=== PATIENT | male | born 1965 | race Caucasian/White ===

== ENCOUNTER 2020-03-29 13:51 | Outpatient (CLI) | payer BC, SELFPAY ==
--- NOTE | 2020-03-29 13:59 | MM_ITS ---
WS: [id number] DIAGNOSTIC BILATERAL DIGITAL MAMMOGRAM WITH CAD Bilateral breast ultrasound, limited HISTORY: MASS OF BOTH BREASTS, male patient. COMPARISON: None available. TECHNIQUE: Bilateral craniocaudad, mediolateral oblique, and mediolateral views are submitted. Spot c ompression bilateral MLO. Computer aided detection utilized. Breast composition: The breasts are almost entirely fatty. Triangular markers are placed over the ant erior aspect of each breast near 6:00. No underlying soft tissue abnormality or distortion is identif ied. Bilateral breast ultrasound. Hypoechoic ill-defined asymmetries posterior to each nipple. The largest on the RIGHT measures 9 x 8 x 8 mm. No increased vascularity. Consistent with very minimal changes of gynecomastia. No discrete p arenchymal nodule or mass. MM/[id number] IMPRESSION: BI-RADS: 2-Benign FOLLOW UP: See Report Findings of very mild gynecomastia bilaterally but greatest on the RIGHT.
== END 2020-03-29 13:52 | disposition home or self-care (01) ==
LOC: RADSHAW 13:56
PROVIDERS: Family Provider Family Medicine; PCP Family Medicine; Visit Provider Family Medicine
DX: N63.10 Unspecified lump in the right breast, unspecified quadrant (principal); N63.20 Unspecified lump in the left breast, unspecified quadrant; N62 Hypertrophy of breast
CPT/HCPCS: 76642; 77066

== ENCOUNTER 2020-12-26 10:53 | Outpatient (CLI) | payer SELFPAY ==
[2020-12-26 11:08] LABS: HF Add Manual Diff No
[2020-12-26 11:12] LABS: Basophils % 0.4 %; Eosinophils # 0.2 10^3/uL (0.0-0.8); Eosinophils % 3.4 %; Hematocrit 40.8 % (42.0-52.0); Hemoglobin 13.7 g/dL (11.7-16.6); Lymphocytes # 1.9 10^3/uL (0.8-4.8); Lymphocytes % 27.5 %; Mean Corpuscular HGB Conc 33.6 g/dL (30.0-36.0); Mean Corpuscular Hemoglobin 28.5 pg (28.0-34.0); Mean Corpuscular Volume 84.8 fl (80-94); Mean Platelet Volume 8.5 fL (7.4-10.4); Monocytes # 0.7 10^3/uL (0.2-0.9); Monocytes % 10.9 %; Neutrophils # 3.88 10^3/uL (1.8-7.7); Neutrophils % 57.5 %; Nucleated Red Blood Cells % 0 %; Platelet Count 282 10^3/cmm (130-400); Red Blood Count 4.81 10^6/uL (4.1-5.3); Red Cell Distribution Width 12.8 % (12.1-15.1); White Blood Count 6.8 10^3/uL (4.0-10.0)
[2020-12-26 11:41] LABS: Estmated Average Glucose 108; Hemoglobin A1C 5.4 % (4.0-6.0)
[2020-12-26 12:19] LABS: Prostate Specific Antigen Scr 0.47 ng/mL (0-4)
[2020-12-26 12:40] LABS: Alanine Aminotransferase 32 U/L (0-41); Albumin Level 4.2 g/dL (3.5-5.2); Alkaline Phosphatase 92 IU/L (40-130); Anion Gap 14.8 (5-19); Aspartate Amino Transferase 23 U/L (0-40); Blood Urea Nitrogen 11 mg/dL (6-20); Calcium 8.9 mg/dL (8.5-10.5); Carbon Dioxide 22 mmol/L (22-29); Chloride 103 mmol/L (98-107); Chol HDL Ratio 2.67 mg/dL (1.0-5.00); Cholesterol 152 mg/dL (0-200); Globulin 2.7 g/dL (1.3-4.6); Glomerular Filtration Rate 88.3 mL/min (90-130); Glucose 86 mg/dL (65-115); HDL Cholesterol 57 mg/dL (60-100); LDL Cholesterol Calculated 57 mg/dL (50-129); Osmolality Calculated 281 mOsm/kg (285-295); Potassium 3.8 mmol/L (3.5-5.1); Sodium 136 mmol/L (136-145); Total Bilirubin 0.3 mg/dL (0.15-1.2); Total Protein 6.9 g/dL (6.6-8.7); Triglycerides 189 mg/dL (0-150)
[2020-12-28 11:25] LABS: Thyroid Stimulating Hormone 2.41 uIU/mL (0.27-4.20)
== END 2020-12-26 10:54 | disposition home or self-care (01) ==
PROVIDERS: PCP Family Medicine; Visit Provider Family Medicine
DX: Z01.89 Encounter for other specified special examinations (principal)

== ENCOUNTER → 2021-02-14 16:31 | Outpatient (BNVA) | payer OTHER, SELFPAY | PROVIDERS: PCP Family Medicine; Visit Provider Internal Medicine | DX: Z20.822 Contact with and (suspected) exposure to COVID-19 (principal); Z01.812 Encounter for preprocedural laboratory examination | CPT/HCPCS: 87635 ==

== ENCOUNTER 2021-02-19 07:09 | Day surgery (SDC) | payer OTHER, SELFPAY ==
[2021-02-14 13:13] VITALS: BMI 33.2
--- NOTE | 2021-02-19 07:25 | ANES.PREANE2 ---
Pre-Anesthetic Assessment Pre-Anesthetic Assessment: Height/Weight: Height 1.83 m Weight 111.13 kg Proposed Procedure: Operation Date: 02/19/21 08:30 Proposed Procedures p Colonoscopy 04173 Z12.11(Not Applicable) - Chaim Hewitt MD Was Beta Ly taken within 24 hours: N/A Was Clonidine taken within 24 hours: N/A Social: Social History: No alcohol and No tobacco Exam: Pre-Anes Outpt Exam: alert, oriented x 3, clear to auscultation bilaterally and regular rate & rhythm Airway: Submandibular: WNL Cervical ROM: WNL MP: 2 Pulmonary: Pulmonary: Asthma Metabolic: Metabolic: Morbid obesity Anesthetic Plan: ASA status: 2 Anesthesia: MAC Risk of > 500 ml blood loss (7ml/kg in children): No PFSH Anesthesia PFSH: Family History (Updated 01/30/21 @ 14:[address]) Grandfather Diabetes Grandmother Cancer Mother Cancer Social History (Updated 01/30/21 @ 14:[address]) Smoking and tobacco status: never smoked service: No History of recent travel: No Data Anesthesia Cardiac Studies: No Data to Display
[2021-02-19 07:39] VITALS: BP 134/95; PULSE 83; RESP 16; TEMP 36.6; O2SAT 96
--- NOTE | 2021-02-19 07:52 | W.PM.OPSFHP ---
Same Day Surgery H&P Indication for Procedure/HPI DATE OF PROCEDURE: February 19, 2021 CHIEF COMPLAINT/INDICATIONFOR SURGICAL PROCEDURE: Screen for colon cancer PREOP DIAGNOSIS: screening PLANNED PROCEDRUE: Operation Date: 02/19/21 08:30 Proposed Procedures p Colonoscopy 60099 Z12.11(Not Applicable) - Chaim Hewitt MD Medications/Allergies* Home Medications Medication Instructions Recorded Confirmed Type aspirin 325 mg tablet 325 mg PO DAILY 01/08/21 02/19/21 History bimatoprost 0.01 % eye drops 1 drp OPHTHALMIC (EYE) DAILY 01/08/21 02/19/21 History montelukast 10 mg tablet 10 mg PO DAILY 01/08/21 02/19/21 History ibuprofen 200 mg tablet 400 mg PO .prn PRN tab 01/30/21 02/19/21 History Allergies/Adverse Reactions Allergy/AdvReac Type Severity Reaction Status Date / Time No Known Allergies Allergy Verified 02/14/21 13:17 Pertinent History/Comorbid Conditions* Family History (Updated 01/30/21 @ 14:55 by GRACIELA Connell) Diabetes Grandfather Cancer Grandmother Mother Social History Smoking and tobacco status: never smoked service: No History of recent travel: No Pertinent Exam Findings alert, oriented x 3, clear to auscultation bilaterally, regular rate & rhythm, operative site marked and procedure specific exam findings Recommendations Surgery/Procedure today Coding Level of Care Code Acute Shipping Point Inspector for Mitchell Mccall
[2021-02-19] MEDS: sodium chloride 0.9% 1,000 ML 30 ML IV (07:53)
[2021-02-19 09:16] VITALS: BP 134/93; PULSE 76; RESP 16; TEMP 36.1; O2SAT 96
[2021-02-19 09:25] VITALS: BP 133/90; PULSE 69; RESP 16; O2SAT 98
--- NOTE | 2021-02-19 10:53 | ANE.PACU2 ---
Inpatient post-anesthesia follow up: Airway intact: Yes Vital signs: Temperature 97.0 F Pulse Rate 69 Respiratory Rate 16 Blood Pressure 133/90 Pulse Oximetry 98 Oxygen Delivery Me thod Room Air Oxygen Flow Rate Fraction of Inspir ed Oxygen Hydration adequate: Yes Mental status: Baseline
== END 2021-02-19 09:48 | disposition home or self-care (01) ==
PROVIDERS: PCP Family Medicine; Visit Provider Internal Medicine
PROC: 0DJD8ZZ Inspection of Lower Intestinal Tract, Via Natural or Artificial Opening Endoscopic (ICD-10-PCS; CPT 45378; principal; 2021-02-19 08:30)
DX: Z12.11 Encounter for screening for malignant neoplasm of colon (principal); K64.8 Other hemorrhoids; Z79.82 Long term (current) use of aspirin
CPT/HCPCS: 45378; 96360; 96361; J2704; J7030

== ENCOUNTER 2023-01-11 16:29 | Emergency (ER) | payer OTHER, SELFPAY ==
[2023-01-11 16:38] VITALS: BP 133/85; PULSE 102; RESP 18; TEMP 36.6; O2SAT 96; BMI 32.9
[2023-01-11 16:40] VITALS: BP 133/89; PULSE 96; RESP 18; O2SAT 99
--- NOTE | 2023-01-11 16:43 | XRR_ITS ---
PROCEDURE INFORMATION: Exam: XR Left Wrist Exam date and time: 01/11/2023 4:50 PM Age: 57 years old Clinical indication: Injury or trauma; Fall; Blunt trauma (contusions or hematomas); Wrist; Left; Additional info: Fall pain TECHNIQUE: Imaging protocol: Radiologic exam of the left wrist. Views: 3 or more views. COMPARISON: No relevant prior studies available. FINDINGS: Bones/joints: There is a comminuted impacted fracture of the distal radius extending to the articular surface with moderate dorsal angulation of the radiocarpal joint angle on the lateral view. Remaining osseous structures and joint surfaces are intact. Soft tissues: Unremarkable. XR/XR wrist LT min 3V* [id number] IMPRESSION: Acute comminuted impacted fracture of the distal radius.
--- NOTE | 2023-01-11 17:05 | W.ED.EXTPRO ---
HPI - Extremity Problem General: Chief complaint: Extremity Injury, Upper Stated complaint: left arm pain Time Seen by Provider: 01/11/23 17:03 History of Present Illness: 57-year-old male patient was working in the yard when he tripped and fell catching himself outstretched arm. Patient has swelling and some dinner fork deformity to the left wrist. Cap refill and sensation is intact. Patient appears nontoxic. Patient has medical history of high blood pressure, asthma, and glaucoma. Review of Systems General: Reports: 10 or more systems reviewed and unremarkable except in HPI and below Musc: Reports: extremity pain and extremity swelling [facility] ED PFSH: Medical History (Updated 01/11/23 @ 17:48 by JOHNSON Rowe) Fatigue Generalized anxiety disorder History of Lyme disease last tick bite 12/25/2022 Hypertension Internal hemorrhoids colonoscopy 02/19/2021 Dr. Hewitt Obesity Peripheral neuropathy Family History (Updated 01/30/21 @ 14:[address]) Grandfather Diabetes Grandmother Cancer Mother Cancer Social History (Updated 01/30/21 @ 14:56 by Aline Spence, CT) Smoking and tobacco status: never smoked service: No Physical Exam Const: COMMON NORMALS: alert Neck/C-Spine: COMMON NORMALS: full ROM Resp: COMMON NORMALS: normal respiratory effort and clear to auscultation bilaterally AUSCULTATION: clear to auscultation bilaterally Cardio: COMMON NORMALS: regular rate and regular rhythm RATE: regular rate RHYTHM: regular rhythm Extremity: LEFT UPPER EXTREMITY: Yes wrist (Dorsal swelling, decreased range of motion of wrist) Left wrist: Yes inspection, Yes palpation, Yes ROM and Yes neurovascular exam Neuro: SENSORIUM/ORIENTATION: Yes alert Skin: COMMON NORMALS: turgor normal GENERAL SKIN EXAM: turgor normal Procedures Nerve Block Nerve Block 1: Local Anesthetic: lidocaine 2% Amount of anesthesia used (mL): 6 Side: left Nerve Blocks: hematoma block Orthopedic Splinting/Casting Injury #1: Side: left Upper Extremity Injury Location: wrist Upper Extremity Immobilizer: volar splint (Short arm Ortho-Glass) Course Vital Signs: Vital signs: Vital Signs Temperature 97.8 F 01/11/23 16:38 Pulse Rate 92 01/11/23 17:52 Respiratory Rate 18 01/11/23 17:52 Blood Pressure 131/98 01/11/23 17:52 Pulse Oximetry 96 01/11/23 17:52 Oxygen Delivery Me thod Room Air 01/11/23 17:10 MDM - Extremity (Nontraumatic) Medical Decision Making 57-year-old male patient comes in today for complaints of injury to the left wrist. On exam patient has normal movement of the lower digits with prompt cap refill. Patient does have sensation to touch. Swelling is noted to the dorsal aspect of the left wrist. Patient reports that he tripped and fell at home while doing yard work catching at the outstretched arm. Differential diagnosis includes fracture, dislocation, sprain. X-ray noted a comminuted fracture of the distal radius. Reviewed exam with Dr. Mann who recommended volar splint and follow-up. Hematoma block was given for comfort splint was then applied with gentle traction to the fracture with application of splint. Patient reported relief of discomfort after splint application cap refill remained intact sensation remained intact. Patient was put in the volar splint and arm sling with recommendations for follow-up with appointment. Lab Data Radiology Impressions Wrist X-Ray 01/11/23 16:43 IMPRESSION: Acute comminuted impacted fracture of the distal radius. All radiology interpretation(s) finalized by discharge Discharge Plan Discharge Patient Disposition: Home Clinical Impression: Fracture of wrist Qualifiers: Encounter type: initial encounter Fracture type: closed Laterality: left Qualified Code(s): S62.102A - Fracture of unspecified carpal bone, left wrist, initial encounter for closed fracture Condition: Stable Prescriptions: New hydrocodone-acetaminophen 5-325 mg tablet 1 tab PO Q6H PRN (Reason: pain (scale score 7-10)) Qty: 12 0RF No Action montelukast 10 mg tablet 10 mg PO DAILY Lumigan 0.01 % drops 1 drp ophthalmic (eye) DAILY lisinopril 5 mg tablet 5 mg PO DAILY Qty: 30 1RF doxycycline hyclate 100 mg tablet 100 mg PO BID 10 Days Qty: 20 0RF Discharge Orders: Discharge ED (Routine); Ordered 01/11/23 Ordered By: Denis Kaplan Referrals: Nadir Georges MD [Primary Care Provider] - Govind Mann DO [Physician] - Discharge Diet: Usual diet Discharge Activity: Limit activity as instructed Patient Instructions: Wrist Fracture in Adults (ED), Splint Care (ED), Opioid Safety Activity Restrictions/Additional Instructions: Follow-up with orthopedics office for definitive repair. Use ice for pain and swelling. Use acetaminophen or ibuprofen to help control pain. Use hydrocodone for severe pain. Call orthopedics office Friday to assure appointment time. Case management while also contact you regarding appointment. Coding Level of Care Code ED Delinquency Prevention Officer for Mitchell Mccall
[2023-01-11 17:10] VITALS: BP 133/89; PULSE 91; RESP 20; O2SAT 96
[2023-01-11] MEDS: HYDROcodone-acetaminophen 7.5-325 mg Tablet 1 TAB PO (17:19)
[2023-01-11 17:52] VITALS: BP 131/98; PULSE 92; RESP 18; O2SAT 96
--- NOTE | 2023-01-11 17:54 | PC.NURSE ---
All prescriptions sent with patient. Patient verbalized understanding. Follow up appoints made.
--- NOTE | 2023-01-13 10:27 | PC.SOCIAL ---
Ortho Referral Referral to clinic at this time. Clinic to contact patient with appt date/time.
== END 2023-01-11 17:45 | disposition home or self-care (01) ==
PROVIDERS: Emergency Provider Nurse Practitioner Family; PCP Family Medicine
DX: S52.502A Unspecified fracture of the lower end of left radius, initial encounter for closed fracture (principal); I10 Essential (primary) hypertension; W01.0XXA Fall on same level from slipping, tripping and stumbling without subsequent striking against object, initial encounter
CPT/HCPCS: 29125; 73110; 99283

== ENCOUNTER → 2023-01-14 16:10 | Outpatient (BNVA) | payer OTHER, SELFPAY | PROVIDERS: PCP Family Medicine; Referring Provider Nurse Practitioner Family; Visit Provider Student in an Organized Health Care Education/Training Program | DX: S52.502A Unspecified fracture of the lower end of left radius, initial encounter for closed fracture; W01.0XXA Fall on same level from slipping, tripping and stumbling without subsequent striking against object, initial encounter | CPT/HCPCS: 73110 ==

== ENCOUNTER 2023-01-20 06:01 | Day surgery (SDC) | payer OTHER, SELFPAY ==
[2023-01-20] VITALS (9 sets, daily range): BP systolic 100–127; BP diastolic 61–90; PULSE 79–98; RESP 12–20; TEMP 36.1–36.9; O2SAT 93–99; BMI 32.9
--- NOTE | 2023-01-20 | XR_ITS ---
WS: [id number] Left wrist, C-arm fluoroscopy views, 01/20/2023 Clinical Data: ORIF left wrist, or pic Comparison: Left wrist, 01/14/2023 Findings: Dr. Mann performed an internal fixation of the distal left radius. Impression: Internal fixation of distal left radial fracture.
--- NOTE | 2023-01-20 06:26 | W.PM.OPSUD ---
Surgery/Procedure H&P Update DATE OF PROCEDURE: January 20, 2023 DATE H&P PERFORMED: 01/14/23 H&P UPDATE INFORMATION: I have reviewed H&P completed within last 30 days, I have examined patient prior to procedure and No changes to prior documentation PREOP DIAGNOSIS: Left displaced distal radius fx PRIMARY INDICATION FOR PROCEDURE: displaced left distal radius fx PLANNED PROCEDURE: Operation Date: 01/20/23 07:00 Proposed Procedures p ORIF Wrist ORIF Distal Radius(Left)(Left) - Govind Mann DO
[2023-01-20] MEDS: ketorolac 30 mg/mL INJ IVP (06:28)
[2023-01-20] MEDS: sodium chloride 0.9% 1,000 ML 30 ML IV (06:29)
[2023-01-20] MEDS: acetaminophen 1,000 MG/100 ML PIGGYBACK 400 MG IV (06:30)
[2023-01-20] MEDS: scopolamine 1.5 Patch 1 PATCH TRANSDERMA (06:32)
--- NOTE | 2023-01-20 07:01 | SUR.PREOP ---
Timeout was performed at bedside in preop for block to left axillary. Patient tolerated block well.
--- NOTE | 2023-01-20 07:05 | ANES.PROC ---
Anesthesia Procedures Procedure/Date: 01/20/23 Nerve Block ^: Nerve Block 1: Main Anesthesia: general anesthesia Time Out Performed: Yes Consent: requested by attending/covering physician, from patient, from other, risks and benefits reviewed and patient agrees to proceed Nerve block location: axillary (L (plus L musculocutaneous)) Anesthesia monitors applied: pulse oximetry, EKG, BP cuff and oxygen Nerve block position: supine Anesthetic Used: ropivicaine 0.5% (30 ml) and with decadron (4 mg) Ultrasound used to: recognize landmarks Nerve Stimulator Used?: No Interscalene/Femoral BLK: 2 stimuplex 22 g needle used for position and inplane approach, visualize local anesthetic spread and no vascular puncture identified Injection: neg aspiration of heme Patient Tolerated Procedure: well and no complications Complications: none
[2023-01-20] MEDS: ceFAZolin 2,000 MG in sodium chloride 0.9% (plus) 50 ML 100 MG IV (07:11)
--- NOTE | 2023-01-20 08:27 | P.BOP_ITS ---
Date of Procedure: [01/20/2023] Surgeon: [Govind Mann DO] Audiology Director(s): [Martin Mann PA-C] Procedure(s) performed: [Left Distal Radius Open Reduction Internal Fixation 3part Intraarticular] Findings of the procedure(s): [Left distal radius fx, ORIF went as planned] Estimated blood loss: [5mL] Specimen(s) removed: [None] Post-operative diagnosis: [Left Distal Radius 3part intraarticular fx]
--- NOTE | 2023-01-20 08:31 | P.OP_ITS ---
Operative Report Date of procedure: January 20, 2023 Surgeon: Govind Mann DO Associate Product Manager: Martin Mann PA-C PA was necessary for assistance in this case with arm positioning as well as to assist in holding reduction and retraction as well as protection of neurovascular structures during execution of ORIF distal radius Procedure: Preop Diagnosis ? Left distal radius fracture ? Procedure: Post-op diagnosis: Same, 3 part intra-articular Procedure done: Left distal radius open reduction internal fixation, 3-part intra-articular Implants: ?Arthrex left 3-hole standard volar locking plate single use sterile implant Kit Surgeon: Govind Mann DO Anesthesia: General and nerve Block (Regional) Estimated blood loss: 5 mL Tourniquet time: 35 minutes IV fluids: See anesthesia record Complications: None Findings: See operative report narrative Condition: stable Disposition: same day Brief History: Patient is a 57-year-old male who presented to my office for a [id number]-[id number] left distal radius fracture.? Patient has significant comminution and shortening as well as dorsal angulation patient active and at this point time through shared decision making patient like to proceed with a left distal radius ORIF.? We had a detailed discussion in the office about nonoperative and operative intervention.? At this point time I feel through shared decision? best option would be open reduction internal fixation pt young, active and already has a considerable deformity as result through shared decision making patient would like to proceed with ORIF left distal radius fracture.? Detail the risk benefits complication alternatives to treatment option.? Understanding risk for surgery patient elects to proceed with surgical intervention.? All questions been answered at this time. Procedure: Patient seen and evaluated in the preoperative holding area.? Consent reviewed and signed with patient.? Correct extremities were marked and consent was reviewed and signed.? Patient was seen and evaluated by anesthesia department.? Underwent regional anesthesia. Once cleared for surgery pt was taken back to the operative suite.? Patient was then transported into the operative suite and kept on the OR gurney, all bony prominences well-padded patient was appropriate secur ed to bed in supine position.? An armboard was applied to the left upper extremity.? The left upper extremity had a nonsterile tourniquet applied.? Patient subsequently was then prepped and draped in standard orthopedic fashion she underwent anesthesia per the anesthesia department.? A final timeout was performed.? Patient received appropriate preoperative antibiotics. Esmarch was used exsanguinate the left upper extremity and tourniquet was insufflated to 250 mmHg. A standard modified FCR volar approach was performed to the left distal radius.? Sharp scalpel incision through skin and subcutaneous tissue.? I then switched to Littler dissection scissors identify the FCR tendon releases out of the sheath both proximally and distally mobilized the tendon ulnarly and then subsequently incised the floor of the FCR tendon sheath with care to just incise the floor.? I then bluntly sweep the FPL tendon muscle belly ulnarly and placed blunt self- retaining retractor.? At this point time I direct visualization of the pronator quadratus which was incised in standard L fashion off the radial and distal border in the distal radius and fracture site was scraped clean of interposed muscle belly.? I then identified the 3 part intra-articular distal radius fracture.? This was subsequently opened above and freed of interposing muscle belly as well as periosteum and fracture hematoma.? I did have to utilize my [place] which was placed through the fracture pattern and disengage the fracture and performed manual manipulation and anatomic reduction of the distal radius fracture.? ?Once satisfied with reduction and had appropriate anatomic reduction of the volar cortex.? This was confirmed with mini C arm in multiple orthogonal imaging.? At this point time? I selected a Arthrex anatomic distal radius plate utilizing a standard 3-hole plate sterile implant kit which was subsequently opened and would have appropriate spread distally.? This was then placed up to the distal radius while maintaining my reduction, pins were placed distally and proximally to confirm appropriate placement of the plate along the distal radius.? Minor adjustments were made and once I was satisfied I then subse quently drilled a bicortical 3.5 screw proximally in the oblong hole to allow for appropriate sliding of the distal radius plate appropriately to perfect position on the distal radius.? This had excellent fixation and purchase and brought the plate to bone.? While maintaining my reduction I then confirmed in multiple orthogonal imaging that my plate was in appropriate position.? Once satisfied with my position, I then subsequently drilled and placed a fully threaded cortical screw to compress the plate to bone for the distal fracture fragment.? This was performed with plan to then remove this and placed a locking screw had bicortical fixation with excellent purchase and appropriate reduction of my volar tilt and bringing plate to bone of the distal fragment and plate.? Once I was satisfied with my plate position as well as reduction of the distal radius which was confirmed on AP oblique and lateral imaging I then subsequently drilled measured and placed 4 locking screws around this cortical screw.? Then I subsequently removed the cortical screw and placed a shorter locking screw that did not penetrate the dorsal cortex.?? This completed my distal fixation.? I did utilize mini C arm to confirm appropriate placement of the screws these were all within the distal radius and no joint involvement within the radiocarpal joint or the DRUJ.? These had appropriate subchondral support and maintenance of reduction and fixation of the distal radius fracture.? ?I then turned my attention proximally and then I screwed in the locking guides for my final to screws proximally these were then subsequently drilled measured and appropriate length locking screws were then placed proximally with excellent fixation and locking technology into the plate.? This completed my construct.?Final imaging of the left distal radius open reduction internal fixation was taken of AP lateral as well and is orthogonal imaging.? I then took a inclination view which showed my radial styloid screw was out of the penetration of the joint.? All my distal screws were appropriate length did not penetrate dorsal cortex and did not penetrate the joint.? This completed my fixation.? Smooth wrist range of motion was then noted with no evidence of clicking. Wrist was then taken through pronation supination and stressed the DRUJ which was found to be stable.? The wound was then thoroughly irrigated.? Tourniquet was then subsequently deflated.? Hemostasis satisfactory with bipolar electrocautery.? I then subsequently placed interrupted 3-0 Vicryl sutures for subcutaneous tissue and then subsequently placed a nylon the skin for closure.? Incision was then dressed with Xeroform 4 x 4's Kerlix cast padding and a volar Ortho-Glass splint was then applied with Kang wrap and placed in a sling.? Disposition: Patient taken to PACU in stable condition recovering well receive appropriate discharge instructions as well as pain medication postoperatively.? Maintain splint until follow-up.? Nonweightbearing to operative upper extremity. Pt will follow-up with Dr. Mann in the office in 2 weeks.? If any questions or concerns feel free to contact the office.
--- NOTE | 2023-01-20 08:40 | PM.PACU ---
PACU note Narrative: Patient is a 57-year-old male that just underwent a left distal radius ORIF. Patient transferred to PACU in stable condition. Patient is somnolent and still under the effect of anesthesia. Dressing and splint on left hand is dry and in place. Patient's fingers are warm and well-perfused. Unable to assess sensation and motor due to block. Exam: unarousable Disposition: discharged
--- NOTE | 2023-01-20 10:06 | SUR.PHASEII ---
Patient is calling a taxi for ride home. Nurse offered to call but he insists he will call himself. Patient is aware he is not allowed to drive self today after anesthesia.
--- NOTE | 2023-01-20 10:10 | ANE.PACU2 ---
Inpatient post-anesthesia follow up: Airway intact: Yes Vital signs: Temperature 97.4 F Pulse Rate 87 Respiratory Rate 17 Blood Pressure 109/66 Pulse Oximetry 95 Oxygen Delivery Me thod Room Air Oxygen Flow Rate 6 Fraction of Inspir ed Oxygen Hydration adequate: Yes Nausea and vomiting: No Pain level: 1 Mental status: Baseline
--- NOTE | 2023-01-20 10:12 | SUR.PREOP ---
Patient wanted a coffee from [employer], didn't want to ride in wheelchair, nurse walked him to [employer], offered again to call taxi, patient insisted he would once he got his coffee. Stated he would not drive his vehicle today.
== END 2023-01-20 10:11 | disposition home or self-care (01) ==
PROVIDERS: PCP Family Medicine Adult Medicine; Visit Provider Student in an Organized Health Care Education/Training Program
PROC: (CPT 25609; principal; 2023-01-20 07:00)
DX: S52.572A Other intraarticular fracture of lower end of left radius, initial encounter for closed fracture (principal); X58.XXXA Exposure to other specified factors, initial encounter
CPT/HCPCS: 25609; 73100; 76000; C1713; J0131; J0690; J1100; J1885; J2250; J2371; J2405; J2704; J2795; J3010; J7030

== ENCOUNTER 2023-02-04 06:00 | Outpatient (CLI) | payer OTHER, SELFPAY | END 2023-02-04 06:01 | LOC: SOT 02-07 10:06 | PROVIDERS: Visit Provider Physician Assistant | DX: Z46.89 Encounter for fitting and adjustment of other specified devices (principal); S52.502D Unspecified fracture of the lower end of left radius, subsequent encounter for closed fracture with routine healing; X58.XXXD Exposure to other specified factors, subsequent encounter | CPT/HCPCS: 97760; L3906 ==

== ENCOUNTER → 2023-02-04 14:30 | Outpatient (BNVA) | payer OTHER, SELFPAY | PROVIDERS: PCP Family Medicine Adult Medicine; Visit Provider Physician Assistant | DX: S52.502D Unspecified fracture of the lower end of left radius, subsequent encounter for closed fracture with routine healing; X58.XXXD Exposure to other specified factors, subsequent encounter | CPT/HCPCS: 73110 ==

== ENCOUNTER 2023-02-11 14:16 | Outpatient (RCR) | payer OTHER, SELFPAY | END 2023-03-06 23:59 | disposition home or self-care (01) | LOC: SOT 14:16 | PROVIDERS: PCP Family Medicine Adult Medicine; Visit Provider Student in an Organized Health Care Education/Training Program | DX: S52.502D Unspecified fracture of the lower end of left radius, subsequent encounter for closed fracture with routine healing (principal); X58.XXXD Exposure to other specified factors, subsequent encounter | CPT/HCPCS: 97022; 97110; 97140; 97166; 97530 ==

== ENCOUNTER → 2023-02-12 14:05 | Outpatient (BNVA) | payer OTHER, SELFPAY | PROVIDERS: PCP Family Medicine Adult Medicine; Visit Provider Family Medicine Adult Medicine | DX: I10 Essential (primary) hypertension (principal); R53.83 Other fatigue; F32.A Depression, unspecified | CPT/HCPCS: 80048; 80053; 80061; 84403; 84443; 85025 ==

== ENCOUNTER → 2023-03-04 15:28 | Outpatient (BNVA) | payer OTHER, SELFPAY | PROVIDERS: PCP Family Medicine Adult Medicine; Visit Provider Physician Assistant | DX: Z98.890 Other specified postprocedural states; Z87.81 Personal history of (healed) traumatic fracture; S52.592D Other fractures of lower end of left radius, subsequent encounter for closed fracture with routine healing; X58.XXXD Exposure to other specified factors, subsequent encounter | CPT/HCPCS: 73110 ==

== ENCOUNTER 2023-03-04 16:08 | Outpatient (CLI) | payer OTHER, SELFPAY | END 2023-03-04 16:09 | disposition home or self-care (01) | LOC: SPT 16:11 | PROVIDERS: PCP Family Medicine Adult Medicine; Visit Provider Physician Assistant | DX: Z46.89 Encounter for fitting and adjustment of other specified devices (principal); S52.502D Unspecified fracture of the lower end of left radius, subsequent encounter for closed fracture with routine healing; X58.XXXD Exposure to other specified factors, subsequent encounter | CPT/HCPCS: 97760; L3908 ==

== ENCOUNTER 2023-03-07 06:00 | Outpatient (RCR) | payer OTHER, SELFPAY | END 2023-04-06 23:59 | disposition home or self-care (01) | LOC: SOT 06:00 | PROVIDERS: PCP Family Medicine Adult Medicine; Visit Provider Student in an Organized Health Care Education/Training Program | DX: S52.502D Unspecified fracture of the lower end of left radius, subsequent encounter for closed fracture with routine healing (principal); X58.XXXD Exposure to other specified factors, subsequent encounter | CPT/HCPCS: 97022; 97110 ==

== ENCOUNTER → 2023-05-20 13:47 | Outpatient (BNVA) | payer OTHER, SELFPAY | PROVIDERS: PCP Family Medicine Adult Medicine; Visit Provider Student in an Organized Health Care Education/Training Program | DX: Z98.890 Other specified postprocedural states (principal); S52.592D Other fractures of lower end of left radius, subsequent encounter for closed fracture with routine healing; X58.XXXD Exposure to other specified factors, subsequent encounter | CPT/HCPCS: 73110 ==

== ENCOUNTER → 2024-07-28 14:58 | Outpatient (BNVA) | payer OTHER, SELFPAY | PROVIDERS: PCP Family Medicine Adult Medicine; Visit Provider Family Medicine | DX: Z13.6 Encounter for screening for cardiovascular disorders (principal) | CPT/HCPCS: 80053; 80061; 83036; 84439; 84443; 85025 ==